=== PATIENT | female | born 1950 | race African-American/Black ===

== ENCOUNTER → 2016-07-23 16:41 | Outpatient (CLI) | payer MEDICARE | END | disposition home or self-care (01) | LOC: D.MAMMO 08:15 | DX: Z12.31 Encounter for screening mammogram for malignant neoplasm of breast (principal) ==

== ENCOUNTER 2017-06-08 21:07 | Emergency (ER) | payer MEDICARE | END 2017-06-08 22:26 | disposition home or self-care (01) | LOC: D.ER 21:07 | DX: S16.1XXA Strain of muscle, fascia and tendon at neck level, initial encounter (principal); V43.52XA Car driver injured in collision with other type car in traffic accident, initial encounter; Y93.89 Activity, other specified; Y92.410 Unspecified street and highway as the place of occurrence of the external cause; S29.012A Strain of muscle and tendon of back wall of thorax, initial encounter; I10 Essential (primary) hypertension ==

== ENCOUNTER 2019-09-19 13:04 | Emergency (ER) | payer OTHER ==
[2019-09-19 13:06] VITALS: Wt 71.4 kg
[2019-09-19] MEDS ORDERED: ACETAMINOPHEN500 M1 PO (14:02)
[2019-09-19] MEDS ORDERED: IBUPROFEN800 MG PO (14:02)
[2019-09-19] MEDS ORDERED: CYCLOBENZAPRINE10 MG PO (14:02)
[2019-09-19 14:29] VITALS: BP 166/92
== END 2019-09-19 14:29 | disposition home or self-care (01) ==
LOC: D.ER 13:04
DX: S60.221A Contusion of right hand, initial encounter (principal); W22.8XXA Striking against or struck by other objects, initial encounter; Y93.9 Activity, unspecified; Y92.9 Unspecified place or not applicable; M79.18 Myalgia, other site; M79.601 Pain in right arm; T14.8XXA Other injury of unspecified body region, initial encounter; M79.641 Pain in right hand; I10 Essential (primary) hypertension